=== PATIENT | female | born 1995 ===

== ENCOUNTER 2018-04-23 17:17 | Emergency (ER) | payer OTHER ==
[2018-04-23 17:35] VITALS: O2SAT 99
--- NOTE | 2018-04-23 18:10 | ED PDOC ---
HPI: General Adult Time Seen by Provider: 04/23/18 17:40 Chief Complaint (Nursing): Rib Injury Chief Complaint (Provider): left rib and back pain History Per: Patient History/Exam Limitations: no limitations Onset/Duration Of Symptoms: Days (x1 week) Current Symptoms Are (Timing): Still Present Additional Complaint(s): 22 year old female presents to the emergency department complaining of left rib pain that radiates around to the back associated with pain upon deep inspiration , onset one week ago after doing heavy lifting after moving to a new apartment. Pain is worse with movement and worse if she lays down. Patient denies any cough or chest congestion. No fever or chills. Patient has not taken any meds for pain relief. Patient also have history of asthma and is requesting refill of ventolin inhaler. PMD: Erin Allen Past Medical History Reviewed: Historical Data, Nursing Documentation, Vital Signs Vital Signs: Last Vital Signs Temp 98.4 F 04/23/18 17:33 Pulse 78 04/23/18 17:33 Resp 20 04/23/18 17:33 BP 122/83 04/23/18 17:33 Pulse Ox 99 04/23/18 18:13 - Medical History PMH: Asthma - Surgical History Surgical History: No Surg Hx - Family History Family History: States: No Known Family Hx - Living Arrangements Living Arrangements: With Family - Social History Current smoker - smoking cessation education provided: No Alcohol: None Drugs: Denies - Home Medications Home Medications: Ambulatory Orders Medication Instructions Recorded Doxycycline Hyclate [Doxycycline] mg PO DAILY 03/24/15 Albuterol HFA [Ventolin HFA 90 1 puff IH ASDIR #1 unit 04/23/18 mcg/actuation (8 g)] Cyclobenzaprine [Cyclobenzaprine 10 mg PO TID PRN #20 tab 04/23/18 HCl] Naproxen [Naprosyn] 500 mg PO BID #20 tab 04/23/18 - Allergies Allergies/Adverse Reactions: Allergies Allergy/AdvReac Type Severity Reaction Status Date / Time No Known Allergies Allergy Verified 04/23/18 17:32 Review of Systems ROS Statement: Except As Marked, All Systems Reviewed And Found Negative Respiratory: Positive for: Other (left rib pain, worse with movement, pain with deep inspiration) Gastrointestinal: Negative for: Nausea, Vomiting Musculoskeletal: Positive for: Back Pain Physical Exam - Reviewed Nursing Documentation Reviewed: Yes Vital Signs Reviewed: Yes - Physical Exam Appears: Positive for: Well, Non-toxic, No Acute Distress Head Exam: Positive for: ATRAUMATIC, NORMAL INSPECTION, NORMOCEPHALIC Skin: Positive for: Normal Color. Negative for: Rash Eye Exam: Positive for: Normal appearance Neck: Positive for: Painless ROM Cardiovascular/Chest: Positive for: Other (diffuse tenderness to left lateral chest wall and anterior chest wall, no ecchymosis or palpable bony deformity, no swelling noted) Respiratory: Positive for: Normal Breath Sounds. Negative for: Wheezing, Respiratory Distress Gastrointestinal/Abdominal: Positive for: Soft. Negative for: Tenderness, Distended, Guarding, Rebound Back: Positive for: Normal Inspection. Negative for: L CVA Tenderness, R CVA Tenderness, Vertebral Tenderness Extremity: Positive for: Normal ROM Neurologic/Psych: Positive for: Alert, Oriented (x3) - Laboratory Results Urine POC: Negative - ECG Interpretation Of ECG: NSR no acute finding, reviewed by PA and ED attending O2 Sat by Pulse Oximetry: 99 (RA) Pulse Ox Interpretation: Normal - Other Rad CXR with left rib series X-Ray: Interpreted by Me, Viewed By Me X-Ray Interpretation: no acute finding Medical Decision Making Medical Decision Making: Time: 17:56 Initial Impression: 22 year old female with left chest and rib pain Initial Plan: --EKG --ED Urine --Ribs and Chest X-ray --Incentive spirometer Patient is aware of diagnostic testing results, all questions answered. Patient reports improvement in pain after meds given. Incentive spirometer provided. Prescriptions for Naprosyn and Flexeril given. Patient was advised to rest and avoid heavy lifting and follow up with primary doctor in 2-3 days. Prescription for Ventolin inhaler also provided. Scribe Attestation: Documented by Ramila Dudley, acting as a scribe for Tami العراقي PA-C. Provider Scribe Attestation: All medical record entries made by the Scribe were at my direction and personally dictated by me. I have reviewed the chart and agree that the record accurately reflects my personal performance of the history, physical exam, medical decision making, and the department course for this patient. I have also personally directed, reviewed, and agree with the discharge instructions and disposition. Disposition - Clinical Impression Clinical Impression: Chest wall pain, Rib pain - Patient ED Disposition Is Patient to be Admitted: No Counseled Patient/Family Regarding: Studies Performed, Diagnosis, Need For Followup, Rx Given - Disposition Referrals: Erin Allen MD [Family Provider] - Disposition: Routine/Home Disposition Time: 19:51 Condition: STABLE Additional Instructions: Use incentive spirometer as directed. Take prescription meds as directed as needed for pain. Rest and avoid heavy lifting. Follow-up with primary doctor in 2-3 days. Prescriptions: Albuterol HFA [Ventolin HFA 90 mcg/actuation (8 g)] 1 puff IH ASDIR #1 unit Cyclobenzaprine [Cyclobenzaprine HCl] 10 mg PO TID PRN #20 tab PRN Reason: Muscle Spasm Naproxen [Naprosyn] 500 mg PO BID #20 tab Instructions: Chest Pain That Is Not Caused by the Heart (DC), Bruised Rib (DC) , Costochondritis Forms: [facility] ([place])
[2018-04-23 19:58] VITALS: BP 125/69; PULSE 86; RESP 15; TEMP 98
--- NOTE | 2018-04-24 08:46 | RAD ---
PROCEDURE: Radiographs of the Chest and Left Ribs. HISTORY: Trauma COMPARISON: None available. TECHNIQUE: Frontal radiograph of the chest and multiple oblique radiographs of the left ribs were obtained. FINDINGS: LEFT RIBS: No acute fracture or focal lesion visualized. LUNGS: The lungs are well inflated and clear. PLEURA: No pneumothorax or pleural fluid. CARDIOVASCULAR: Normal sized heart. No pulmonary vascular congestion. OTHER FINDINGS: None. IMPRESSION: No acute rib fracture. Clear lungs.
--- NOTE | 2018-04-25 08:52 | CARD ---
APPROVED REPORT EKG Measurement Heart [id number] <Conclusion> Normal sinus rhythm with sinus arrhythmia Normal ECG
== END 2018-04-23 20:42 | disposition home or self-care (01) ==
LOC: H.ER 17:17
DX: R07.89 Other chest pain (principal); R07.81 Pleurodynia